=== PATIENT | male | born 1960 | race Two or more races ===

== ENCOUNTER 2018-09-08 15:52 | Inpatient (IN) | payer OTHER ==
[2018-09-08 20:55] VITALS: BMI 28.7
--- NOTE | 2018-09-08 21:30 | HP ---
CIWA Score Nausea/Vomitin Muscle Tremors: 2 Anxiety: 3 Agitation: 0-Normal Activity Paroxysmal Sweats: 2 Orientation: 0-Oriented Tacttile Disturbances: 2-Mild Itch/Numbness/Burn Auditory Disturbances: 0-None Visual Disturbances: 2-Mild Sensitivity Headache: 0-None Present CIWA-Ar Total Score: 14 - Admission Criteria OASAS Guidelines: Admission for Medically Managed Detox: Requires at least one of the followin. CIWA greater than 12 2. Seizures within the past 24 hours 3. Delirium tremens within the past 24 hours 4. Hallucinations within the past 24 hours 5. Acute intervention needed for co occurring medical disorder 6. Acute intervention needed for co occurring psychiatric disorder 7. Severe withdrawal that cannot be handled at a lower level of care (continued vomiting, continued diarrhea, abnormal vital signs) requiring intravenous medication and/or fluids 8. Patient presents the following: CIWA greater than 12 Admission Criteria Met: Admission criteria met Admission ROS S - HPI Chief Complaint: alcohol withdrawal symptoms Allergies/Adverse Reactions: Allergies Allergy/AdvReac Type Severity Reaction Status Date / Time No Known Allergies Allergy Verified 09/08/18 20:47 History of Present Illness: 57 yo male with hx of alcohol dependence is here seeking detox d/t withdrawal symptoms. PMHX: HTN, DM II (oral meds), [place] (R) Psych: schizophrenia on seroquel Reports hx of ETOH blackouts with last episode one week ago. Last detox 1.5 years ago at [facility]. Longest period of sobriety one year, reports relapse about five months ago. Exam Limitations: No Limitations - Ebola screening Have you traveled outside of the country in the last 21 days: No Have you had contact with anyone from an Ebola affected area: No - Review of Systems Constitutional: Chills, Loss of Appetite, Changes in sleep, Unintentional Wgt. Loss EENT: reports: Hearing Loss (Left) Respiratory: reports: No Symptoms reported Cardiac: reports: Palpitations GI: reports: Diarrhea, Nausea, Poor Appetite, Abdominal cramping : reports: Incontinence Musculoskeletal: reports: No Symptoms Reported Integumentary: reports: No Symptoms Reported Neuro: reports: Tingling (hands b/l), Tremors, Dizziness Endocrine: reports: Increased Thirst Hematology: reports: No Symptoms Reported Psychiatric: reports: Orientated x3, Anxious Other Systems: Reviewed and Negative Patient History - Patient Medical History Hx Anemia: No Hx Asthma: No Hx Chronic Obstructive Pulmonary Disease (COPD): No Hx Cancer: No Hx Cardiac Disorders: No Hx Congestive Heart Failure: No Hx Hypertension: Yes Hx Hypercholesterolemia: No Hx Pacemaker: No HX Cerebrovascular Accident: No Hx Seizures: No Hx Dementia: No Hx Diabetes: Yes (on metformin ) Hx Gastrointestinal Disorders: No Hx Liver Disease: No Hx Genitourinary Disorders: No Hx Sexually Transmitted Disorders: No Hx Renal Disease (ESRD): No Hx Thyroid Disease: No Hx Human Immunodeficiency Virus (HIV): No Hx Hepatitis C: No Hx Depression: No Hx Suicide Attempt: No Hx Bipolar Disorder: No Hx Schizophrenia: Yes (on seroquel ) - Patient Surgical History Past Surgical History: No - PPD History Previous Implant?: No Documented Results: Negative w/o proof PPD to be Administered?: Yes - Smoking Cessation Smoking history: Never smoked Have you smoked in the past 12 months: No Hx Chewing Tobacco Use: No Initiated information on smoking cessation: No - Substance & Tx. History Hx Alcohol Use: Yes Hx Substance Use: Yes Substance Use Type: Alcohol Hx Substance Use Treatment: Yes (Last detox 1.5 years ago at [facility].) - Substances abused Alcohol Substance route: Oral Frequency: Daily Amount used: 2 litter bacardi + 5 - 6 x 40 oz Age of first use: 17 Date of last use: 09/07/18 Family Disease History - Family Disease History Family Disease History: Heart Disease: Mother (), Sister () Admission Physical Exam BHS - Vital Signs Vital Signs: Vital Signs - 24 hr 09/08/18 20:46 Temperature 98.8 F Pulse Rate 99 H Respiratory 18 Rate Blood Pressure 148/90 - Physical General Appearance: Yes: Disheveled, Alcohol on Breath, Tremorous, Anxious HEENTM: Yes: EOMI, Normal ENT Inspection, Normocephalic, Normal Voice, LONA, Pharynx Normal, Tm's normal, Hearing Decreased (right) Respiratory: Yes: Chest Non-Tender, Lungs Clear, Normal Breath Sounds, No Respiratory Distress, No Accessory Muscle Use Neck: Yes: Within Normal Limits Breast: Yes: Breast Exam Deferred Cardiology: Yes: Regular Rhythm, Regular Rate Abdominal: Yes: Normal Bowel Sounds, Non Tender, Flat, Soft Genitourinary: Yes: Within Normal Limits Back: Yes: Normal Inspection Musculoskeletal: Yes: Within Normal Limits Extremities: Yes: Normal Capillary Refill, Normal Inspection, Normal Range of Motion, Non-Tender Neurological: Yes: prepress operator II-XII NML intact, Fully Oriented, Alert, Motor Strength 5/5, Depressed Affect Integumentary: Yes: Normal Color, Warm, Diaphoresis Lymphatic: Yes: Within Normal Limits - Diagnostic (1) Alcohol dependence with uncomplicated withdrawal Current Visit: Yes Status: Acute (2) Essential (primary) hypertension Current Visit: Yes Status: Chronic (3) Diabetes mellitus type 2, noninsulin dependent Current Visit: Yes Status: Chronic (4) Urinary incontinence Current Visit: Yes Status: Chronic Qualifiers: Urinary Incontinence type: unspecified incontinence Qualified Code(s): R32 - Unspecified urinary incontinence (5) [place] (hard of hearing) Current Visit: Yes Status: Chronic Qualifiers: Hearing loss type: unspecified Laterality: right Qualified Code(s): H91.91 - Unspecified hearing loss, right ear Cleared for Admission S - Detox or Rehab [facility] Level of Care: Medically Managed Detox Regimen/Protocol: Librium Breathalyzer - Breathalyzer Breathalyzer: 0 Urine Drug Screen - Test Device Lot number: [id number] Expiration date: 08/17/19 - Control Is test valid?: Yes - Results Drug screen NEGATIVE: Yes Inpatient Rehab Admission - Rehab Decision to Admit Inpatient rehab admission?: No
[2018-09-08] MEDS ORDERED: P-EPHED 60MG/TRIPROLIDI 2.5MG TABLET PO PRN (21:36)
[2018-09-08] MEDS ORDERED: chlordiazePOXIDE HCL 25 MG CAPSULE PO PRN (21:36)
[2018-09-08] MEDS ORDERED: ONDANSETRON *ODT* 4 MG TABLET SL PRN (21:36)
[2018-09-08] MEDS ORDERED: METHOCARBAMOL 500 MG TABLET PO PRN (21:36)
[2018-09-08] MEDS ORDERED: ACETAMINOPHEN 325 MG TABLET (FP) PO PRN ×2 (21:36)
[2018-09-08] MEDS ORDERED: IBUPROFEN 400 MG TABLET (FP) PO PRN (21:36)
[2018-09-08] MEDS ORDERED: MENTHOL/PHENOL 1 EACH UD MM PRN (21:36)
[2018-09-08] MEDS ORDERED: MELATONIN 5 MG TABLETS PO PRN (21:36)
[2018-09-08] MEDS ORDERED: hydrOXYzine PAMOATE 25 MG CAPSULE (FP) PO PRN (21:36)
[2018-09-08] MEDS ORDERED: MAGNESIUM CITRATE 300 ML BOTTLE PO PRN (21:36)
[2018-09-08] MEDS ORDERED: BISMUTH SUBSALICYLATE 524 MG/30 ML UD PO PRN (21:36)
[2018-09-08] MEDS ORDERED: MAGNESIUM HYDROX 2400MG/30ML ORAL SUSPENSION 30 ML CUP PO PRN (21:36)
[2018-09-08] MEDS ORDERED: MAG HYDROX/AL HYDROX/SIMETH 30 ML UNIT-DOSE CUP PO PRN (21:36)
[2018-09-08] MEDS: BACLOFEN 10 MG TABLET (FP) PO SCH (23:20)
[2018-09-08] MEDS: THIAMINE HCL 100 MG TABLET (FP) PO SCH (23:20)
[2018-09-08] MEDS: chlordiazePOXIDE HCL 25 MG CAPSULE PO SCH (23:21)
[2018-09-09] MEDS: BACLOFEN 10 MG TABLET (FP) PO SCH ×3 (06:26→22:19)
[2018-09-09] MEDS: chlordiazePOXIDE HCL 25 MG CAPSULE PO SCH ×4 (06:26→22:19)
[2018-09-09] MEDS: metFORMIN HCL 500 MG TABLET (FP) PO SCH ×2 (07:27→16:47)
--- NOTE | 2018-09-09 08:16 | CONSULT ---
[facility] Psychiatric Consult - Data Date of interview: 09/09/18 Admission source: Friend Identifying data: Mr Glover is a 57 years old [place]-born male, father of 2 children, unemployed receiving SSI, domiciled seeking detox treatment for alcohol Substance Abuse History: Reports history of alcohol use. Refer to addiction counselor's summary for further information Medical History: Significant for hypertension, type 2 diabetes mellitus and left hearing impairment. Psychiatric History: Patient reports that his first psychiatric contact was 6 years ago when he was amitted to [facility] for hearing voices. He was diagnosed with Schizophrenia and started on psychotropic medications. Reports 3 subsequent psychiatric hospitalizations to various facilities including [facility], [facility] and most recently in 2017 at [facility]. Reports receiving outpatient treatment at [facility] and he is currently precribed Seroquel 400 mg po HS, Haldol 1 mg po daily and Ambien 10 mg po HS. Seroquel and Ambien are confirmed via verification of external medication claims. In the past he has been tried on several medications including Trazadone, Risperdal, Zyprexa, Abilify etc. Denies previous suicidal attempt. At present, denies psychitic, depressive symptoms, S/ H ideations. However, reports sleeping poorly despite taking Melatonin last night Physical/Sexual Abuse/Trauma History: Denies history of emotional, physical or sexual abuse as well as DV relationship. Reports serving in the [employer] Additional Comment: Denies criminal history Mental Status Exam - Mental Status Exam Alert and Oriented to: Time, Place, Person Cognitive Function: Fair Patient Appearance: Well Groomed Mood: Hopeful, Euthymic Patient Behavior: Cooperative Speech Pattern: Clear Voice Loudness: Normal Thought Process: Intact, Goal Oriented Thought Disorder: Not Present Hallucinations: Denies Homicidal Ideation: Denies Insight/Judgement: Poor Sleep: Poorly Appetite: Fair Muscle strength/Tone: Normal Gait/Station: Normal Psychiatric Findings - Problem List ([place] 1, 2,3) (1) Schizophrenia Current Visit: Yes Status: Chronic (2) Alcohol-induced sleep disorder Current Visit: Yes Status: Acute (3) Alcohol dependence with uncomplicated withdrawal Current Visit: Yes Status: Acute (4) Diabetes mellitus type 2, noninsulin dependent Current Visit: Yes Status: Chronic (5) Essential (primary) hypertension Current Visit: Yes Status: Chronic (6) [place] (hard of hearing) Current Visit: Yes Status: Chronic Qualifiers: Hearing loss type: unspecified Laterality: right Qualified Code(s): H91.91 - Unspecified hearing loss, right ear - Initial Treatment Plan Initial Treatment Plan: 1) Continue Seroquel 400 mg po HS. 2) Start Belsomra 10 mg po HS prn for insomnia. 3) Continue inpatient detoxification
[2018-09-09 10:14] LABS: HEMATOCRIT 39.8 % (35.4-49); HEMOGLOBIN 13.4 GM/dL (11.7-16.9); MCH 28.8 pg (25.7-33.7); MCHC 33.5 g/dl (32.0-35.9); MEAN PLT VOLUME 10.1 fl (7.5-11.1); PLATELET COUNT 281 K/MM3 (134-434); RBC 4.63 M/mm3 (4.00-5.60); RDW 13.7 % (11.9-15.9); WHITE BLOOD COUNT 6.9 K/mm3 (4.0-10.0)
[2018-09-09 10:23] LABS: ALBUMIN 3.5 g/dl (3.4-5.0); ALK PHOS 137 U/L (45-117); ANION GAP 8 MMOL/L (8-16); BILIRUBIN,TOTAL 0.3 mg/dL (0.2-1); BLOOD UREA NITROGEN 14 mg/dL (7-18); CALCIUM 9.6 mg/dL (8.5-10.1); CHLORIDE 103 mmol/L (98-107); CO2 29 mmol/L (21-32); CREATININE 1.1 mg/dL (0.55-1.3); GLUCOSE,RANDOM 280 mg/dL (74-106); POTASSIUM 3.8 mmol/L (3.5-5.1); SGOT/AST 15 U/L (15-37); SGPT/ALT 17 U/L (13-61); SODIUM 139 mmol/L (136-145); TOT PROT 7.1 g/dl (6.4-8.2)
[2018-09-09] MEDS: NIFEdipine E.R. 90 MG TABLET (FP) PO SCH (10:23)
[2018-09-09] MEDS: PRENATAL VITAMINS W/ FOLIC ACID TABLET (FP) PO SCH (10:23)
[2018-09-09] MEDS: LABETALOL HCL 100 MG TABLET (FP) PO SCH (10:23)
[2018-09-09] MEDS: ASPIRIN 81 MG CHEWABLE TABLETS PO SCH (10:23)
--- NOTE | 2018-09-09 12:39 | EKG ---
Test Reason : Blood Pressure : / mmHG Vent. Rate : 093 BPM Atrial Rate : 093 BPM P-R Int : 148 ms QRS Dur : 088 ms QT Int : 368 ms P-R-T Axes : 073 -11 090 degrees QTc Int : 457 ms SINUS RHYTHM WITH OCCASIONAL PREMATURE VENTRICULAR COMPLEXES MINIMAL VOLTAGE CRITERIA FOR LVH, MAY BE NORMAL VARIANT NONSPECIFIC ST AND T WAVE ABNORMALITY ABNORMAL ECG Confirmed by MD COSME, OSMANI ([id number]) on 09/09/2018 12:39:12 PM Referred By: Confirmed By:OSMANI AGUIAR MD
--- NOTE | 2018-09-09 13:11 | PN ---
S CIWA - CIWA Score Nausea/Vomitin-No Nausea/No Vomiting Muscle Tremors: 3 Anxiety: 3 Agitation: 4-Moderately Restless Paroxysmal Sweats: 3 Orientation: 0-Oriented Tacttile Disturbances: 0-None Auditory Disturbances: 0-None Visual Disturbances: 0-None Headache: 0-None Present CIWA-Ar Total Score: 13 BHS Progress Note (SOAP) Subjective: sweats shakes interrupted sleep body aches irritable Objective: 09/09/18 13:10 Vital Signs Temperature 98.1 F 09/09/18 10:55 Pulse Rate 105 H 09/09/18 10:55 Respiratory Rate 18 09/09/18 10:55 Blood Pressure 159/102 H 09/09/18 10:55 O2 Sat by Pulse Oximetry (%) Laboratory Tests 09/09/18 09/09/18 09/09/18 07:00 07:00 07:00 WBC 6.9 RBC 4.63 Hgb 13.4 Hct 39.8 MCV 86.0 MCH 28.8 MCHC 33.5 RDW 13.7 Plt Count 281 MPV 10.1 Sodium 139 Potassium 3.8 Chloride 103 Carbon Dioxide 29 Anion Gap 8 BUN 14 Creatinine 1.1 Creat Clearance w eGFR 69.50 POC Glucometer Random Glucose 280 H Calcium 9.6 Total Bilirubin 0.3 AST 15 ALT 17 Alkaline Phosphatase 137 H Total Protein 7.1 Albumin 3.5 RPR Titer Nonreactive HIV 1&2 Antibody Screen HIV P24 Antigen 09/09/18 09/09/18 07:00 07:23 WBC RBC Hgb Hct MCV MCH MCHC RDW Plt Count MPV Sodium Potassium Chloride Carbon Dioxide Anion Gap BUN Creatinine Creat Clearance w eGFR POC Glucometer 259 Random Glucose Calcium Total Bilirubin AST ALT Alkaline Phosphatase Total Protein Albumin RPR Titer HIV 1&2 Antibody Screen Negative HIV P24 Antigen Negative aaox3 ambulating labs noted BP elevated will repeat after pt has taken his BP medications no acute distress Assessment: 09/09/18 13:10 withdrawals sx Plan: continue detox increase fluids continue to monitor BP
[2018-09-09] MEDS ORDERED: INSULIN (NOVOLOG) ASPART 100 UNITS/ML 10ML VIAL SQ ONE (17:45)
[2018-09-09] MEDS ORDERED: INSULIN SLIDING SCALE (NOVOLOG) 1 VIAL SQ ONE (17:59)
[2018-09-09] MEDS ORDERED: SUVOREXANT 10 MG TABLET PO PRN (22:00)
[2018-09-09] MEDS ORDERED: QUEtiapine FUMARATE 400 MG TABLET PO SCH (22:00)
[2018-09-09] MEDS: QUEtiapine FUMARATE 200 MG TABLET PO SCH (22:19)
[2018-09-09] MEDS: THIAMINE HCL 100 MG TABLET (FP) PO SCH (22:19)
[2018-09-10] MEDS: metFORMIN HCL 500 MG TABLET (FP) PO SCH ×2 (06:30→17:30)
[2018-09-10] MEDS: BACLOFEN 10 MG TABLET (FP) PO SCH ×3 (06:30→22:10)
[2018-09-10] MEDS: chlordiazePOXIDE HCL 25 MG CAPSULE PO SCH ×3 (06:30→18:20)
[2018-09-10] MEDS: TRIAMCINOLONE ACET 0.025% CREAM 15 GM TUBE TP SCH ×2 (11:03→22:10)
[2018-09-10] MEDS: PRENATAL VITAMINS W/ FOLIC ACID TABLET (FP) PO SCH (11:03)
[2018-09-10] MEDS: ASPIRIN 81 MG CHEWABLE TABLETS PO SCH (11:03)
[2018-09-10] MEDS: guaiFENesin 200 MG/10 ML 10 ML UNIT-DOSE CUPS PO PRN (11:06)
[2018-09-10] MEDS: NIFEdipine E.R. 90 MG TABLET (FP) PO SCH (11:52)
[2018-09-10] MEDS: LABETALOL HCL 100 MG TABLET (FP) PO SCH (11:52)
--- NOTE | 2018-09-10 12:06 | PN ---
S CIWA - CIWA Score Nausea/Vomitin-Mild Nausea/No Vomiting Muscle Tremors: 1-None Visible, but [place] Anxiety: 1-Mildly Anxious Agitation: 1-Slight > Activity Paroxysmal Sweats: No Perspiration Orientation: 0-Oriented Tacttile Disturbances: 0-None Auditory Disturbances: 0-None Visual Disturbances: 0-None Headache: 0-None Present CIWA-Ar Total Score: 4 BHS Progress Note (SOAP) Subjective: pt states he is "OK" O: Vital Signs - 24 hr 09/09/18 09/09/18 09/09/18 13:11 17:11 21:48 Temperature 98.6 F 97.7 F 97.9 F Pulse Rate 100 H 113 H 87 Respiratory 18 18 18 Rate Blood Pressure 134/88 147/94 153/104 H 09/10/18 09/10/18 09/10/18 00:30 03:00 03:30 Temperature 98.2 F Pulse Rate 101 H Respiratory 20 20 18 Rate Blood Pressure 152/111 H 09/10/18 10:26 Temperature 97.8 F Pulse Rate 111 H Respiratory 18 Rate Blood Pressure 164/97 increased MD and BP Laboratory Tests 09/09/18 09/09/18 09/09/18 07:00 07:00 07:00 WBC 6.9 RBC 4.63 Hgb 13.4 Hct 39.8 MCV 86.0 MCH 28.8 MCHC 33.5 RDW 13.7 Plt Count 281 MPV 10.1 Sodium 139 Potassium 3.8 Chloride 103 Carbon Dioxide 29 Anion Gap 8 BUN 14 Creatinine 1.1 Creat Clearance w eGFR 69.50 POC Glucometer Random Glucose 280 H Calcium 9.6 Total Bilirubin 0.3 AST 15 ALT 17 Alkaline Phosphatase 137 H Total Protein 7.1 Albumin 3.5 RPR Titer Nonreactive HIV 1&2 Antibody Screen HIV P24 Antigen 09/09/18 09/09/18 09/09/18 07:00 07:23 16:42 WBC RBC Hgb Hct MCV MCH MCHC RDW Plt Count MPV Sodium Potassium Chloride Carbon Dioxide Anion Gap BUN Creatinine Creat Clearance w eGFR POC Glucometer 259 324 Random Glucose Calcium Total Bilirubin AST ALT Alkaline Phosphatase Total Protein Albumin RPR Titer HIV 1&2 Antibody Screen Negative HIV P24 Antigen Negative 09/10/18 06:49 WBC RBC Hgb Hct MCV MCH MCHC RDW Plt Count MPV Sodium Potassium Chloride Carbon Dioxide Anion Gap BUN Creatinine Creat Clearance w eGFR POC Glucometer 288 Random Glucose Calcium Total Bilirubin AST ALT Alkaline Phosphatase Total Protein Albumin RPR Titer HIV 1&2 Antibody Screen HIV P24 Antigen increased blood sugar a/p: continue alcohol detox protocol- pt states doing well without withdrawal Sx - monitor VS, prn meds for Sxic treatment
[2018-09-10] MEDS ORDERED: cloNIDine HCL 0.1 MG TABLET PO PRN (12:07)
[2018-09-10] MEDS ORDERED: hydrOXYzine PAMOATE 25 MG CAPSULE (FP) PO PRN (12:07)
[2018-09-10] MEDS ORDERED: LISINOPRIL 20 MG TABLET (FP) PO ONE (14:56)
[2018-09-10] MEDS: THIAMINE HCL 100 MG TABLET (FP) PO SCH (22:09)
[2018-09-10] MEDS: QUEtiapine FUMARATE 200 MG TABLET PO SCH (22:10)
[2018-09-10] MEDS: chlordiazePOXIDE HCL 10 MG CAPSULE PO SCH (22:10)
[2018-09-10] MEDS ORDERED: chlordiazePOXIDE HCL 10 MG CAPSULE PO PRN (23:00)
[2018-09-10] MEDS ORDERED: cloNIDine HCL 0.1 MG TABLET PO ONE (23:19)
--- NOTE | 2018-09-10 23:24 | PN ---
[facility] Progress Note Note: Patient's blood pressure is B/P 150/102 Vital Signs Temperature 97.7 F 09/10/18 21:48 Pulse Rate 100 H 09/10/18 21:48 Respiratory Rate 18 09/10/18 21:48 Blood Pressure 150/102 H 09/10/18 21:48 O2 Sat by Pulse Oximetry (%) Action: Clonidine 0.1mg tablet oral ordered
[2018-09-11] MEDS: chlordiazePOXIDE HCL 10 MG CAPSULE PO SCH ×4 (06:01→22:17)
[2018-09-11] MEDS ORDERED: cloNIDine HCL 0.1 MG TABLET PO ONE (06:10)
--- NOTE | 2018-09-11 06:14 | PN ---
BHS Progress Note Note: Patient's blood pressure this morning is B/P 152/111. patient is asymptomatic Vital Signs Temperature 97.9 F 09/11/18 06:12 Pulse Rate 92 H 09/11/18 06:12 Respiratory Rate 18 09/11/18 06:12 Blood Pressure 152/111 H 09/11/18 06:12 O2 Sat by Pulse Oximetry (%) Action: Clonidine 0.1mg tablet oral ordered
[2018-09-11] MEDS: metFORMIN HCL 500 MG TABLET (FP) PO SCH ×2 (07:01→17:27)
[2018-09-11] MEDS: BACLOFEN 10 MG TABLET (FP) PO SCH ×2 (07:01→15:13)
[2018-09-11] MEDS ORDERED: INSULIN (NOVOLOG) ASPART 100 UNITS/ML 10ML VIAL SQ ONE (07:26)
--- NOTE | 2018-09-11 07:32 | PN ---
BHS Progress Note Note: Patient's blood sugar was 406mg/dl. Patient is asymptomatic Action: Insulin Novolog 8 units ordered
[2018-09-11] MEDS ORDERED: INSULIN SLIDING SCALE (NOVOLOG) 1 VIAL SQ ONE ×2 (07:50→17:57)
[2018-09-11] MEDS: diphenhydrAMINE HCL 25 MG CAPSULE (FP) PO SCH ×2 (08:45→13:44)
[2018-09-11] MEDS: LABETALOL HCL 100 MG TABLET (FP) PO SCH (10:18)
[2018-09-11] MEDS: LISINOPRIL 20 MG TABLET (FP) PO SCH (10:18)
[2018-09-11] MEDS: PRENATAL VITAMINS W/ FOLIC ACID TABLET (FP) PO SCH (10:18)
[2018-09-11] MEDS: ASPIRIN 81 MG CHEWABLE TABLETS PO SCH (10:18)
[2018-09-11] MEDS: NIFEdipine E.R. 90 MG TABLET (FP) PO SCH (10:18)
[2018-09-11] MEDS: TRIAMCINOLONE ACET 0.025% CREAM 15 GM TUBE TP SCH ×2 (10:18→22:17)
--- NOTE | 2018-09-11 12:10 | EKG ---
Test Reason : Blood Pressure : / mmHG Vent. Rate : 092 BPM Atrial Rate : 092 BPM P-R Int : 138 ms QRS Dur : 086 ms QT Int : 386 ms P-R-T Axes : 056 -26 -53 degrees QTc Int : 477 ms SINUS RHYTHM WITH OCCASIONAL PREMATURE VENTRICULAR COMPLEXES MINIMAL VOLTAGE CRITERIA FOR LVH, MAY BE NORMAL VARIANT NONSPECIFIC T WAVE ABNORMALITY PROLONGED QT ABNORMAL ECG WHEN COMPARED WITH ECG OF 08-SEP-2018 21:55, NONSPECIFIC T WAVE ABNORMALITY NOW EVIDENT IN INFERIOR LEADS Confirmed by HARSHAL ALVA MD ([id number]) on 09/11/2018 12:10:21 PM Referred By: MARIA EUGENIA OLIVIA Confirmed By:HARSHAL ALVA MD
--- NOTE | 2018-09-11 13:36 | PN ---
S Progress Note Note: this am pt states he woke up to his upper lip very swollen pt was assessed and has his upper lip very swollen. pt denies any difficulty swallowing no SOB. pt will be ordered Benadryl 25mg q6hr until swelling has diminished. pt in agreement.
--- NOTE | 2018-09-11 13:37 | PN ---
[facility] CIWA - CIWA Score Nausea/Vomitin-No Nausea/No Vomiting Muscle Tremors: 3 Anxiety: 3 Agitation: 3 Paroxysmal Sweats: 2 Orientation: 0-Oriented Tacttile Disturbances: 0-None Auditory Disturbances: 0-None Visual Disturbances: 0-None Headache: 0-None Present CIWA-Ar Total Score: 11 [facility] Progress Note (SOAP) Subjective: sweats agitation swelling of lip Objective: 09/11/18 13:40 Vital Signs Temperature 97.9 F 09/11/18 09:08 Pulse Rate 94 H 09/11/18 09:08 Respiratory Rate 18 09/11/18 09:08 Blood Pressure 124/78 09/11/18 09:08 O2 Sat by Pulse Oximetry (%) Laboratory Tests 09/09/18 09/09/18 09/09/18 07:00 07:00 07:00 WBC 6.9 RBC 4.63 Hgb 13.4 Hct 39.8 MCV 86.0 MCH 28.8 MCHC 33.5 RDW 13.7 Plt Count 281 MPV 10.1 Sodium 139 Potassium 3.8 Chloride 103 Carbon Dioxide 29 Anion Gap 8 BUN 14 Creatinine 1.1 Creat Clearance w eGFR 69.50 POC Glucometer Random Glucose 280 H Calcium 9.6 Total Bilirubin 0.3 AST 15 ALT 17 Alkaline Phosphatase 137 H Total Protein 7.1 Albumin 3.5 RPR Titer Nonreactive HIV 1&2 Antibody Screen HIV P24 Antigen 09/09/18 09/09/18 09/09/18 07:00 07:23 16:42 WBC RBC Hgb Hct MCV MCH MCHC RDW Plt Count MPV Sodium Potassium Chloride Carbon Dioxide Anion Gap BUN Creatinine Creat Clearance w eGFR POC Glucometer 259 324 Random Glucose Calcium Total Bilirubin AST ALT Alkaline Phosphatase Total Protein Albumin RPR Titer HIV 1&2 Antibody Screen Negative HIV P24 Antigen Negative 09/10/18 09/10/18 09/11/18 06:49 17:02 06:58 WBC RBC Hgb Hct MCV MCH MCHC RDW Plt Count MPV Sodium Potassium Chloride Carbon Dioxide Anion Gap BUN Creatinine Creat Clearance w eGFR POC Glucometer 288 360 406 Random Glucose Calcium Total Bilirubin AST ALT Alkaline Phosphatase Total Protein Albumin RPR Titer HIV 1&2 Antibody Screen HIV P24 Antigen aaox3 ambulating no acute distress Assessment: 09/11/18 13:41 withdrawal sx swelling of upper lip noted Plan: continue detox increase fluids Benadryl 25mg q6hrs reassess lip swelling
--- NOTE | 2018-09-11 14:59 | PN ---
S Progress Note Note: swelling of upper and now lower lip noted pt denies of any difficulty of swallowing and breathing will continue with higher dose of benadryl 50mg first dose now. will reasses
[2018-09-11] MEDS ORDERED: predniSONE 20 MG TABLET (UD) PO ONE ×2 (17:17→18:02)
--- NOTE | 2018-09-11 17:17 | PN ---
[facility] Progress Note Note: Vital Signs Temperature 99.0 F 09/11/18 17:06 Pulse Rate 89 09/11/18 17:06 Respiratory Rate 20 09/11/18 17:06 Blood Pressure 137/88 09/11/18 17:06 O2 Sat by Pulse Oximetry (%) Laboratory Last Values WBC 6.9 K/mm3 (4.0-10.0) 09/09/18 07:00 RBC 4.63 M/mm3 (4.00-5.60) 09/09/18 07:00 Hgb 13.4 GM/dL (11.7-16.9) 09/09/18 07:00 Hct 39.8 % (35.4-49) 09/09/18 07:00 MCV 86.0 fl (80-96) 09/09/18 07:00 MCH 28.8 pg (25.7-33.7) 09/09/18 07:00 MCHC 33.5 g/dl (32.0-35.9) 09/09/18 07:00 RDW 13.7 % (11.9-15.9) 09/09/18 07:00 Plt Count 281 K/MM3 (134-434) 09/09/18 07:00 MPV 10.1 fl (7.5-11.1) 09/09/18 07:00 Sodium 139 mmol/L (136-145) 09/09/18 07:00 Potassium 3.8 mmol/L (3.5-5.1) 09/09/18 07:00 Chloride 103 mmol/L (98-107) 09/09/18 07:00 Carbon Dioxide 29 mmol/L (21-32) 09/09/18 07:00 Anion Gap 8 MMOL/L (8-16) 09/09/18 07:00 BUN 14 mg/dL (7-18) 09/09/18 07:00 Creatinine 1.1 mg/dL (0.55-1.3) 09/09/18 07:00 Creat Clearance w eGFR 69.50 (>60) 09/09/18 07:00 POC Glucometer 362 UNITS (80-120) 09/11/18 16:30 Random Glucose 280 mg/dL (74-106) H 09/09/18 07:00 Calcium 9.6 mg/dL (8.5-10.1) 09/09/18 07:00 Total Bilirubin 0.3 mg/dL (0.2-1) 09/09/18 07:00 AST 15 U/L (15-37) 09/09/18 07:00 ALT 17 U/L (13-61) 09/09/18 07:00 Alkaline Phosphatase 137 U/L (45-117) H 09/09/18 07:00 Total Protein 7.1 g/dl (6.4-8.2) 09/09/18 07:00 Albumin 3.5 g/dl (3.4-5.0) 09/09/18 07:00 RPR Titer Nonreactive (NONREACTIVE) 09/09/18 07:00 HIV 1&2 Antibody Screen Negative 09/09/18 07:00 HIV P24 Antigen Negative 09/09/18 07:00 Patient evaluated for elevated BGM and lip bilateral lip swelling denies SOB, difficulty breathing, air way constriction, paresthesia, BHAGAT, vertigo Patient Aox3, no acute distress + upper and lower lip swelling skin intact no adventitious breath sounds full ROM, no gait disturbance - hyperglycemia - allergic reaction Plan: increase po fluids insulin sliding scale BGM ACHS prednisone: 09/11/18 = 40 mg; 09/12/18 = 30 mg; 09/13/18 = 20 mg; 09/14/18 = 10 mg bendryl 50 mg q6h prn continue to monitor
[2018-09-11] MEDS: INSULIN (NOVOLOG) ASPART 100 UNITS/ML 10ML VIAL SQ SCH (17:55)
[2018-09-11] MEDS: diphenhydrAMINE HCL 50 MG CAPSULE PO SCH ×2 (18:23→23:50)
[2018-09-11] MEDS: THIAMINE HCL 100 MG TABLET (FP) PO SCH (22:17)
[2018-09-11] MEDS: QUEtiapine FUMARATE 200 MG TABLET PO SCH (22:17)
[2018-09-11] MEDS: guaiFENesin 200 MG/10 ML 10 ML UNIT-DOSE CUPS PO PRN (22:19)
[2018-09-12] MEDS ORDERED: diphenhydrAMINE HCL 25 MG CAPSULE (FP) PO ONE (04:15)
[2018-09-12] MEDS: diphenhydrAMINE HCL 50 MG CAPSULE PO SCH (06:11)
[2018-09-12] MEDS ORDERED: cloNIDine HCL 0.1 MG TABLET PO ONE (06:19)
--- NOTE | 2018-09-12 06:22 | PN ---
B[facility] Progress Note Note: Patient s blood pressure is B/P 170/109. Patient is asymptomatic Vital Signs Temperature 98.1 F 09/12/18 06:00 Pulse Rate 102 H 09/12/18 06:05 Respiratory Rate 18 09/12/18 06:05 Blood Pressure 170/109 H 09/12/18 06:05 O2 Sat by Pulse Oximetry (%) Action: Clonidine 0.1mg table oral ordered
[2018-09-12] MEDS ORDERED: INSULIN SLIDING SCALE (NOVOLOG) 1 VIAL SQ ONE ×2 (06:29→12:10)
[2018-09-12] MEDS: INSULIN (NOVOLOG) ASPART 100 UNITS/ML 10ML VIAL SQ SCH ×3 (06:32→17:22)
[2018-09-12] MEDS: metFORMIN HCL 500 MG TABLET (FP) PO SCH ×2 (06:33→17:22)
[2018-09-12] MEDS ORDERED: predniSONE 10 MG TABLET (UD) PO ONE (10:00)
--- NOTE | 2018-09-12 10:31 | PN ---
S CIWA - CIWA Score Nausea/Vomitin-No Nausea/No Vomiting Muscle Tremors: 3 Anxiety: 2 Agitation: 2 Paroxysmal Sweats: 2 Orientation: 0-Oriented Tacttile Disturbances: 0-None Auditory Disturbances: 0-None Visual Disturbances: 0-None Headache: 0-None Present CIWA-Ar Total Score: 9 BHS Progress Note (SOAP) Subjective: lip swelling has decreased feeling much better little anxiety Objective: 09/12/18 10:29 Vital Signs Temperature 98.1 F 09/12/18 09:18 Pulse Rate 92 H 09/12/18 09:18 Respiratory Rate 18 09/12/18 09:18 Blood Pressure 159/90 09/12/18 09:18 O2 Sat by Pulse Oximetry (%) aaox3 ambulating no acute distress Assessment: 09/12/18 10:29 mild withdrawal sx lip swelling has decreased significantly; lips appear normal Plan: continue detox increase fluids benadryl d/c d/c in am
[2018-09-12] MEDS: PRENATAL VITAMINS W/ FOLIC ACID TABLET (FP) PO SCH (11:52)
[2018-09-12] MEDS: LABETALOL HCL 100 MG TABLET (FP) PO SCH (11:52)
[2018-09-12] MEDS: ASPIRIN 81 MG CHEWABLE TABLETS PO SCH (11:53)
[2018-09-12] MEDS: chlordiazePOXIDE HCL 10 MG CAPSULE PO SCH (11:53)
[2018-09-12] MEDS: LISINOPRIL 20 MG TABLET (FP) PO SCH (11:53)
[2018-09-12] MEDS: TRIAMCINOLONE ACET 0.025% CREAM 15 GM TUBE TP SCH (11:53)
[2018-09-12 17:23] VITALS: BP 119/74; PULSE 91; TEMP 98.4
--- NOTE | 2018-09-12 20:08 | DS ---
[facility] Detox Discharge Summary Admission Date: 09/08/18 Discharge Date: 09/12/18 - History Present History: Alcohol Dependence Additional Comments: Admitted with alcohol withdrawal. PMHX: HTN, DM II. MHHx: Schizophrenia - Physical Exam Results Vital Signs: Vital Signs Temperature 98.4 F 09/12/18 17:23 Pulse Rate 91 H 09/12/18 17:23 Respiratory Rate 18 09/12/18 17:23 Blood Pressure 119/74 09/12/18 17:23 O2 Sat by Pulse Oximetry (%) Pertinent Admission Physical Exam Findings: Admitted to detox with alcohol withdrawal symptoms. Laboratory Last Values WBC 6.9 K/mm3 (4.0-10.0) 09/09/18 07:00 RBC 4.63 M/mm3 (4.00-5.60) 09/09/18 07:00 Hgb 13.4 GM/dL (11.7-16.9) 09/09/18 07:00 Hct 39.8 % (35.4-49) 09/09/18 07:00 MCV 86.0 fl (80-96) 09/09/18 07:00 MCH 28.8 pg (25.7-33.7) 09/09/18 07:00 MCHC 33.5 g/dl (32.0-35.9) 09/09/18 07:00 RDW 13.7 % (11.9-15.9) 09/09/18 07:00 Plt Count 281 K/MM3 (134-434) 09/09/18 07:00 MPV 10.1 fl (7.5-11.1) 09/09/18 07:00 Sodium 139 mmol/L (136-145) 09/09/18 07:00 Potassium 3.8 mmol/L (3.5-5.1) 09/09/18 07:00 Chloride 103 mmol/L (98-107) 09/09/18 07:00 Carbon Dioxide 29 mmol/L (21-32) 09/09/18 07:00 Anion Gap 8 MMOL/L (8-16) 09/09/18 07:00 BUN 14 mg/dL (7-18) 09/09/18 07:00 Creatinine 1.1 mg/dL (0.55-1.3) 09/09/18 07:00 Creat Clearance w eGFR 69.50 (>60) 09/09/18 07:00 POC Glucometer 408 UNITS (80-120) 09/12/18 16:38 Random Glucose 280 mg/dL (74-106) H 09/09/18 07:00 Calcium 9.6 mg/dL (8.5-10.1) 09/09/18 07:00 Total Bilirubin 0.3 mg/dL (0.2-1) 09/09/18 07:00 AST 15 U/L (15-37) 09/09/18 07:00 ALT 17 U/L (13-61) 09/09/18 07:00 Alkaline Phosphatase 137 U/L (45-117) H 09/09/18 07:00 Total Protein 7.1 g/dl (6.4-8.2) 09/09/18 07:00 Albumin 3.5 g/dl (3.4-5.0) 09/09/18 07:00 RPR Titer Nonreactive (NONREACTIVE) 09/09/18 07:00 HIV 1&2 Antibody Screen Negative 09/09/18 07:00 HIV P24 Antigen Negative 09/09/18 07:00 Labs reviewed. - Treatment Hospital Course: Detox Protocol Followed, Rehab Referral Accepted - Medication Discharge Medications: Ambulatory Orders Aspirin 81 mg PO DAILY 09/08/18 Labetalol HCl 100 mg PO DAILY 09/08/18 Metformin HCl [Glucophage] 500 mg PO BID 09/08/18 Nifedipine [Procardia Xl] 90 mg PO DAILY 09/08/18 Quetiapine Fumarate [Seroquel -] 400 mg PO HS 09/08/18 - Diagnosis (1) Alcohol dependence with uncomplicated withdrawal Status: Acute (2) Diabetes mellitus type 2, noninsulin dependent Status: Chronic (3) Essential (primary) hypertension Status: Chronic (4) [place] (hard of hearing) Status: Chronic Qualifiers: Hearing loss type: unspecified Laterality: right Qualified Code(s): H91.91 - Unspecified hearing loss, right ear (5) Schizophrenia Status: Chronic Qualifiers: Schizophrenia type: unspecified Qualified Code(s): F20.9 - Schizophrenia, unspecified (6) Urinary incontinence Status: Chronic Qualifiers: Urinary Incontinence type: unspecified incontinence Qualified Code(s): R32 - Unspecified urinary incontinence - AMA Did Patient Leave Against Medical Advice: No
[2018-09-13] MEDS ORDERED: predniSONE 20 MG TABLET (UD) PO ONE (10:00)
== END 2018-09-12 19:30 | disposition other institution (70) | DRG 775 ==
LOC: YASAS 15:52 → Y6N 21:42
PROVIDERS: ADMIT Surgery; ATTEND Surgery
PROC: HZ2ZZZZ Detoxification Services for Substance Abuse Treatment (ICD-10-PCS; principal; 2018-09-08)
DX: F10.230 Alcohol dependence with withdrawal, uncomplicated (principal); F10.282 Alcohol dependence with alcohol-induced sleep disorder; F20.9 Schizophrenia, unspecified; I10 Essential (primary) hypertension; E11.65 Type 2 diabetes mellitus with hyperglycemia; Z79.4 Long term (current) use of insulin; H91.91 Unspecified hearing loss, right ear; T78.40XA Allergy, unspecified, initial encounter; R22.0 Localized swelling, mass and lump, head; R32 Unspecified urinary incontinence
CPT/HCPCS: 36415; 80053; 82962; 85027; 86593; 87389; 93005; 93010; J0475; J0735

== ENCOUNTER 2018-09-12 19:55 | Inpatient (IN) | payer OTHER ==
--- NOTE | 2018-09-12 19:45 | HP ---
[facility] Rehab Assess/Revision - Admission History Admitted to Rehab from: [facility] Date of Admission to Rehab: 09/12/2018 - Findings Detox History & Physical reviewed: Yes Concur with findings: Yes Comments/Additional Findings: Early alcohol remission post detox. PMHX: HTN, DM II. Psych: Schizophrenia on seroquel Inpatient Rehab Admission - Rehab Decision to Admit Inpatient rehab admission?: Yes - Initial Determination Are CD services needed?: Yes Free of communicable disease: Yes Not in need of hospitalization: Yes - Rehab Admission Criteria Previous failed treatment: Yes Poor recovery environment: Yes Comorbidities: Yes Lacks judgement: No Patient is meeting Inpatient Rehab admission criteria:: Yes
[2018-09-12] MEDS ORDERED: guaiFENesin 200 MG/10 ML 10 ML UNIT-DOSE CUPS PO PRN (22:12)
[2018-09-12] MEDS ORDERED: IBUPROFEN 400 MG TABLET (FP) PO PRN (22:12)
[2018-09-12] MEDS ORDERED: MENTHOL/PHENOL 1 EACH UD MM PRN (22:12)
[2018-09-12] MEDS ORDERED: MAGNESIUM HYDROX 2400MG/30ML ORAL SUSPENSION 30 ML CUP PO PRN (22:12)
[2018-09-12] MEDS ORDERED: P-EPHED 60MG/TRIPROLIDI 2.5MG TABLET PO PRN (22:12)
[2018-09-12] MEDS ORDERED: MAG HYDROX/AL HYDROX/SIMETH 30 ML UNIT-DOSE CUP PO PRN (22:12)
[2018-09-12] MEDS ORDERED: MAGNESIUM CITRATE 300 ML BOTTLE PO PRN (22:12)
[2018-09-12] MEDS ORDERED: LOPERAMIDE HCL 2 MG CAPSULE PO PRN (22:12)
[2018-09-12] MEDS ORDERED: ACETAMINOPHEN 325 MG TABLET (FP) PO PRN (22:12)
[2018-09-12] MEDS ORDERED: SUVOREXANT 10 MG TABLET PO PRN (22:15)
[2018-09-12] MEDS ORDERED: QUEtiapine FUMARATE 200 MG TABLET PO SCH (22:17)
[2018-09-13] MEDS ORDERED: cloNIDine HCL 0.1 MG TABLET PO ONE (06:56)
--- NOTE | 2018-09-13 06:59 | PN ---
[facility] Progress Note Note: Patient's blood pressure this morning was B/P 153/110. Patient is asymptomatic Vital Signs Temperature 98.8 F 09/12/18 20:55 Pulse Rate 100 H 09/12/18 20:55 Respiratory Rate 20 09/13/18 03:30 Blood Pressure 153/110 H 09/13/18 06:32 O2 Sat by Pulse Oximetry (%) Action: Clonidine 0.1mg tablet oral ordered
[2018-09-13] MEDS: INSULIN SLIDING SCALE (NOVOLOG) 1 VIAL SQ SCH ×3 (07:03→16:55)
[2018-09-13] MEDS: metFORMIN HCL 500 MG TABLET (FP) PO SCH ×2 (07:03→16:54)
[2018-09-13] MEDS ORDERED: INSULIN (NOVOLOG) ASPART 100 UNITS/ML 10ML VIAL ONE ×3 (07:08→16:54)
[2018-09-13] MEDS ORDERED: PT OWN MED DRAWER 7, Y5N ONE (09:08)
[2018-09-13] MEDS: LISINOPRIL 20 MG TABLET (FP) PO SCH (10:41)
[2018-09-13] MEDS: LABETALOL HCL 100 MG TABLET (FP) PO SCH (10:41)
[2018-09-13] MEDS: ASPIRIN 81 MG CHEWABLE TABLETS PO SCH (10:41)
[2018-09-13] MEDS: PRENATAL VITAMINS W/ FOLIC ACID TABLET (FP) PO SCH (10:41)
[2018-09-13] MEDS: predniSONE 20 MG TABLET (UD) PO SCH (10:41)
[2018-09-13] MEDS: NIFEdipine E.R. 90 MG TABLET (FP) PO SCH (10:41)
[2018-09-13] MEDS: TRIAMCINOLONE ACET 0.025% CREAM 15 GM TUBE TP SCH ×2 (13:20→22:24)
--- NOTE | 2018-09-13 17:02 | CONSULT ---
[facility] Psychiatric Consult - Data Date of interview: 09/13/18 Admission source: Transfer from [address] [place] [address]. Identifying data: Case of a 57 y/o [place]-born male, sent to [address] for rehabilitative care after completion of detoxification treatment on [address] [place] [address]. Patient is addressing issues of alcohohol use disorder co-morbid with schizophrenia. Mr Nieves is currently (divorce pending), a father of two, uncertain about housing status, unemployed and supported on SSI benefits. Substance Abuse History: Discussed in this session. Patient admits to an extensive history of ETOH abuse. Details in current [facility] report as follows : Smoking history: Never smoked. Have you smoked in the past 12 months: No. Hx Chewing Tobacco Use: No. Initiated information on smoking cessation: No. - Substance & Tx. History. Hx Alcohol Use: Yes. Hx Substance Use: Yes. Substance Use Type: Alcohol. Hx Substance Use Treatment: Yes (Last detox 1.5 years ago at [facility].). - Substances abused. Alcohol. Substance route: Oral. Frequency: Daily. Amount used: 2 litter bacardi + 5 - 6 x 40 oz. Age of first use: 17. Date of last use: 09/07/18 Medical History: Medical co-morbidities : hypertension, non-insulin dependent diabetes mellitus and hearing impediment (left ear). Psychiatric History: Described, in detail, in Dr Morel's consult note of . Mr Hahn is at his first admission to [facility]. Diagnosed with schizophrenia. Early onset of mental illness (age [age]). History of multiple hospitalizations ([facility], [facility], [facility], [facility], [facility]). Hospitalized as recently as 2017 ([facility]). Maintenance medications consist of a regimen of seroquel 400 mg/hs + haldol 1 mg/day + zolpidem 10 mg/hs. Patient sees a psychiatrist for medication management at the [facility] in [facility]. No reported history of suicide attempts. Physical/Sexual Abuse/Trauma History: Patient denies. Additional Comment: Drug screen is negative. Mental Status Exam - Mental Status Exam Alert and Oriented to: Time, Place, Person Cognitive Function: Good Patient Appearance: Well Groomed (muscular frame, tattoos ) Mood: Apprehensive, Hopeful Affect: Appropriate, Normal Range Patient Behavior: Appropriate, Cooperative Speech Pattern: Clear (fluent in georgian) Voice Loudness: Normal Thought Process: Goal Oriented Thought Disorder: Not Present Hallucinations: Denies Suicidal Ideation: Denies Homicidal Ideation: Denies Insight/Judgement: Fair Sleep: Poorly, Difficulty falling asleep Appetite: Good Muscle strength/Tone: Normal Gait/Station: Normal Psychiatric Findings - Problem List ([place] 1, 2,3) (1) Schizophrenia Current Visit: Yes Status: Chronic Qualifiers: Schizophrenia type: unspecified Qualified Code(s): F20.9 - Schizophrenia, unspecified (2) Alcohol dependence Current Visit: Yes Status: Chronic (3) Insomnia Current Visit: Yes Status: Chronic - Initial Treatment Plan Initial Treatment Plan: Psychoeducation. Support. Reassurance. Motivational counseling. Patient will be informed of the currently FDA-approved strategies for relapse prevention (MAT options). AA meetings. Mr Hahn is requesting an increase of his dose of seroquel. Agrees to an increment of 100 mg. Seroquel is now raised, with the patient's verbal consent, to 300 mg po hs. Side effects/ benefits discussed. Mr Hahn is reminded of his diabetic status but he still insists on staying on that medication (effective in his case). Observation.
[2018-09-13] MEDS: QUEtiapine FUMARATE 300 MG TABLET PO SCH (22:25)
[2018-09-13] MEDS: THIAMINE HCL 100 MG TABLET (FP) PO SCH (22:25)
[2018-09-13] MEDS: MELATONIN 5 MG TABLETS PO PRN (22:28)
[2018-09-13] MEDS: hydrOXYzine PAMOATE 50 MG CAPSULE (FP) PO PRN (22:29)
[2018-09-14] MEDS ORDERED: cloNIDine HCL 0.1 MG TABLET PO ONE (06:32)
[2018-09-14] MEDS ORDERED: INSULIN (NOVOLOG) ASPART 100 UNITS/ML 10ML VIAL ONE ×4 (06:39→16:48)
--- NOTE | 2018-09-14 06:48 | PN ---
S Progress Note Note: Patient's blood pressure is B/P 160/102. Patient is asymptomatic Vital Signs Temperature 97.2 F L 09/14/18 06:32 Pulse Rate 82 09/14/18 06:32 Respiratory Rate 18 09/14/18 06:32 Blood Pressure 160/102 H 09/14/18 06:32 O2 Sat by Pulse Oximetry (%) Action: clonidine 0.1mg tablet oral ordered
[2018-09-14] MEDS: INSULIN SLIDING SCALE (NOVOLOG) 1 VIAL SQ SCH ×3 (07:23→17:24)
[2018-09-14] MEDS: metFORMIN HCL 500 MG TABLET (FP) PO SCH ×2 (07:23→16:49)
[2018-09-14] MEDS ORDERED: predniSONE 10 MG TABLET (UD) PO ONE (10:00)
[2018-09-14] MEDS: hydrOXYzine PAMOATE 50 MG CAPSULE (FP) PO PRN (10:17)
[2018-09-14] MEDS: TRIAMCINOLONE ACET 0.025% CREAM 15 GM TUBE TP SCH ×2 (10:17→21:11)
[2018-09-14] MEDS: PRENATAL VITAMINS W/ FOLIC ACID TABLET (FP) PO SCH (10:17)
[2018-09-14] MEDS: ASPIRIN 81 MG CHEWABLE TABLETS PO SCH (10:17)
[2018-09-14] MEDS: predniSONE 20 MG TABLET (UD) PO SCH (10:17)
[2018-09-14] MEDS ORDERED: PT OWN MED DRAWER 7, Y5N ONE (10:18)
[2018-09-14] MEDS: LISINOPRIL 20 MG TABLET (FP) PO SCH (10:18)
[2018-09-14] MEDS: NIFEdipine E.R. 90 MG TABLET (FP) PO SCH (10:19)
[2018-09-14] MEDS: LABETALOL HCL 100 MG TABLET (FP) PO SCH (10:20)
[2018-09-14] MEDS: FLUTICASONE PROP 0.05% 16 GM NASAL SPRAY NS SCH ×2 (15:44→21:11)
[2018-09-14] MEDS ORDERED: INSULIN (NOVOLOG) ASPART 100 UNITS/ML 10ML VIAL SQ ONE (16:52)
--- NOTE | 2018-09-14 16:55 | PN ---
S Progress Note Note: bgm 520 mgs will give novolog 15 units sq,bgm monitoring with insulin coverage
[2018-09-14] MEDS: MELATONIN 5 MG TABLETS PO PRN (21:10)
[2018-09-14] MEDS: THIAMINE HCL 100 MG TABLET (FP) PO SCH (21:10)
[2018-09-14] MEDS: QUEtiapine FUMARATE 300 MG TABLET PO SCH (21:10)
[2018-09-15] MEDS: metFORMIN HCL 500 MG TABLET (FP) PO SCH ×2 (06:35→16:57)
[2018-09-15] MEDS ORDERED: INSULIN (NOVOLOG) ASPART 100 UNITS/ML 10ML VIAL ONE ×3 (06:36→16:52)
[2018-09-15] MEDS: INSULIN SLIDING SCALE (NOVOLOG) 1 VIAL SQ SCH ×3 (06:38→16:59)
[2018-09-15] MEDS ORDERED: cloNIDine HCL 0.1 MG TABLET PO ONE (07:18)
[2018-09-15] MEDS ORDERED: LABETALOL HCL 100 MG TABLET (FP) PO SCH (09:43)
[2018-09-15] MEDS: PRENATAL VITAMINS W/ FOLIC ACID TABLET (FP) PO SCH (09:59)
[2018-09-15] MEDS: FLUTICASONE PROP 0.05% 16 GM NASAL SPRAY NS SCH ×2 (09:59→21:51)
--- NOTE | 2018-09-15 09:59 | PN ---
[facility] Progress Note Note: PATIENT SEEN FOR ELEVATED BLOOD PRESSURE AND BLOOD SUGAR. PATIENT RECENTLY TREATED WITH COURSE OF PREDNISONE FOR ALLERGIC REACTION WHICH CAN CONTRIBUTE TO ELEVATION OF BLOOD SUGAR. PREDNISONE TITRATION COMPLETED 09/13/18. PATIENT ALSO WITH ELEVATED BP, EXTERNAL HX OF SHOWS LABETOLOL 200MG DAILY NOT 100MG DAILY. PATIENT DENIES HEADACHE, CHEST PAIN, SOB AND DIZZINESS AT THIS TIME. Vital Signs Temperature 97.9 F 09/15/18 06:00 Pulse Rate 109 H 09/15/18 06:00 Respiratory Rate 18 09/15/18 06:00 Blood Pressure 167/116 H 09/15/18 06:00 O2 Sat by Pulse Oximetry (%) Laboratory Tests 09/13/18 09/13/18 09/13/18 06:45 11:49 16:52 POC Glucometer 344 421 418 09/14/18 09/14/18 09/14/18 05:54 12:11 16:45 POC Glucometer 386 376 520 09/15/18 06:35 POC Glucometer 318 PE: ALERT AND ORIENTED X 3 SKIN WARM AND DRY +PERRLA, EOMS INTACT BL EXT FULL ROM, NO TREMORS AMB AD VERONICA A/P: HYPERGLYCEMIA, HX OF DM ELEVATED BP, HX OF HTN WILL INCREASE LABETOLOL TO 100MG BID LISINOPRIL INCREASED TO 40MG DAILY CONTINUE INSULIN AND METFORMIN ENCOURAGE FLUIDS CONTINUE TO MONITOR CLINICALLY
[2018-09-15] MEDS: NIFEdipine E.R. 90 MG TABLET (FP) PO SCH (10:00)
[2018-09-15] MEDS: hydrOXYzine PAMOATE 50 MG CAPSULE (FP) PO PRN ×2 (10:00→21:50)
[2018-09-15] MEDS: ASPIRIN 81 MG CHEWABLE TABLETS PO SCH (10:00)
[2018-09-15] MEDS: TRIAMCINOLONE ACET 0.025% CREAM 15 GM TUBE TP SCH ×2 (10:01→21:51)
[2018-09-15] MEDS: LISINOPRIL 20 MG TABLET (FP) PO SCH (10:21)
[2018-09-15] MEDS: LABETALOL HCL 100 MG TABLET (FP) PO SCH ×2 (10:21→21:50)
[2018-09-15] MEDS: MELATONIN 5 MG TABLETS PO PRN (21:50)
[2018-09-15] MEDS: THIAMINE HCL 100 MG TABLET (FP) PO SCH (21:50)
[2018-09-15] MEDS: QUEtiapine FUMARATE 300 MG TABLET PO SCH (21:50)
[2018-09-16] MEDS ORDERED: HYDROCHLOROTHIAZIDE 25 MG TABLET (FP) PO SCH (06:45)
[2018-09-16] MEDS ORDERED: INSULIN (NOVOLOG) ASPART 100 UNITS/ML 10ML VIAL ONE ×3 (06:48→16:31)
[2018-09-16] MEDS: metFORMIN HCL 500 MG TABLET (FP) PO SCH ×2 (06:51→16:46)
[2018-09-16] MEDS: INSULIN SLIDING SCALE (NOVOLOG) 1 VIAL SQ SCH ×3 (06:57→16:47)
[2018-09-16] MEDS: LABETALOL HCL 100 MG TABLET (FP) PO SCH ×2 (10:27→21:10)
[2018-09-16] MEDS: FLUTICASONE PROP 0.05% 16 GM NASAL SPRAY NS SCH ×2 (10:27→21:13)
[2018-09-16] MEDS: LISINOPRIL 20 MG TABLET (FP) PO SCH (10:27)
[2018-09-16] MEDS: PRENATAL VITAMINS W/ FOLIC ACID TABLET (FP) PO SCH (10:27)
[2018-09-16] MEDS: ASPIRIN 81 MG CHEWABLE TABLETS PO SCH (10:27)
[2018-09-16] MEDS: NIFEdipine E.R. 90 MG TABLET (FP) PO SCH (10:28)
[2018-09-16] MEDS: TRIAMCINOLONE ACET 0.025% CREAM 15 GM TUBE TP SCH ×2 (10:29→21:13)
--- NOTE | 2018-09-16 14:08 | PN ---
[facility] Progress Note Note: Patient with elevated BP and elevated BGM. Asymptomatic. He has many home medications that have not been ordered. His pharmacy was called and the list of medications was sent to [facility]. All appropriate medications and doses were ordered (see orders). Patient informed. Will continue to monitor.
[2018-09-16] MEDS: THIAMINE HCL 100 MG TABLET (FP) PO SCH (21:10)
[2018-09-16] MEDS: QUEtiapine FUMARATE 300 MG TABLET PO SCH (21:11)
[2018-09-16] MEDS: MELATONIN 5 MG TABLETS PO PRN (21:13)
[2018-09-17] MEDS ORDERED: INSULIN (NOVOLOG) ASPART 100 UNITS/ML 10ML VIAL ONE ×3 (06:39→16:43)
[2018-09-17] MEDS: INSULIN SLIDING SCALE (NOVOLOG) 1 VIAL SQ SCH ×3 (06:39→16:43)
[2018-09-17] MEDS: metFORMIN HCL 500 MG TABLET (FP) PO SCH ×2 (06:39→16:45)
[2018-09-17] MEDS: sitaGLIPtin PHOSPHATE 100 MG TABLET (FP) PO SCH (06:39)
[2018-09-17] MEDS ORDERED: PT OWN MED DRAWER 7, Y5N ONE ×2 (09:38→10:18)
[2018-09-17] MEDS ORDERED: LOSARTAN 50MG/HCTZ 12.5MG 1 TAB (FP) PO SCH (10:00)
[2018-09-17] MEDS: ASPIRIN 81 MG CHEWABLE TABLETS PO SCH (10:10)
[2018-09-17] MEDS: LISINOPRIL 20 MG TABLET (FP) PO SCH (10:10)
[2018-09-17] MEDS: PRENATAL VITAMINS W/ FOLIC ACID TABLET (FP) PO SCH (10:10)
[2018-09-17] MEDS: TRIAMCINOLONE ACET 0.025% CREAM 15 GM TUBE TP SCH ×2 (10:11→21:44)
[2018-09-17] MEDS: FLUTICASONE PROP 0.05% 16 GM NASAL SPRAY NS SCH ×2 (10:11→21:44)
[2018-09-17] MEDS: LABETALOL HCL 100 MG TABLET (FP) PO SCH ×2 (10:12→21:04)
[2018-09-17] MEDS: NIFEdipine E.R. 90 MG TABLET (FP) PO SCH (10:13)
--- NOTE | 2018-09-17 11:44 | PN ---
[facility] Progress Note Note: BP and random blood glucose are still elevated; however. home medications were just started today. Will monitor and adjust. Patient is asymptomatic at this time. Vital Signs Period Temp Pulse Resp BP Sys/Walters Pulse Ox Last 24 Hr 97.9 F 83-95 18-18 148-158/94-96 Laboratory Last Values POC Glucometer 300 UNITS (80-120) 09/17/18 06:33
[2018-09-17] MEDS: THIAMINE HCL 100 MG TABLET (FP) PO SCH (21:03)
[2018-09-17] MEDS: QUEtiapine FUMARATE 300 MG TABLET PO SCH (21:03)
[2018-09-17] MEDS: MELATONIN 5 MG TABLETS PO PRN (21:04)
[2018-09-18] MEDS ORDERED: INSULIN (NOVOLOG) ASPART 100 UNITS/ML 10ML VIAL ONE ×3 (06:47→16:45)
[2018-09-18] MEDS: INSULIN SLIDING SCALE (NOVOLOG) 1 VIAL SQ SCH ×3 (06:47→16:56)
[2018-09-18] MEDS: metFORMIN HCL 500 MG TABLET (FP) PO SCH ×2 (06:47→16:49)
[2018-09-18] MEDS: sitaGLIPtin PHOSPHATE 100 MG TABLET (FP) PO SCH (06:47)
[2018-09-18] MEDS ORDERED: cloNIDine HCL 0.1 MG TABLET PO ONE (06:51)
--- NOTE | 2018-09-18 06:56 | PN ---
[facility] Progress Note Note: Patient's blood pressure this morning is B/P 159/107. Patient is asymptomatic Vital Signs Temperature 98.5 F 09/18/18 06:47 Pulse Rate 88 09/18/18 06:47 Respiratory Rate 20 09/18/18 06:47 Blood Pressure 159/107 H 09/18/18 06:47 O2 Sat by Pulse Oximetry (%) Action: Clonidine 0.1mg tablet oral ordered
[2018-09-18] MEDS: NIFEdipine E.R. 90 MG TABLET (FP) PO SCH (09:48)
[2018-09-18] MEDS: ASPIRIN 81 MG CHEWABLE TABLETS PO SCH (09:48)
[2018-09-18] MEDS: LISINOPRIL 20 MG TABLET (FP) PO SCH (09:48)
[2018-09-18] MEDS: PRENATAL VITAMINS W/ FOLIC ACID TABLET (FP) PO SCH (09:48)
[2018-09-18] MEDS: LABETALOL HCL 100 MG TABLET (FP) PO SCH ×2 (09:48→22:00)
[2018-09-18] MEDS: TRIAMCINOLONE ACET 0.025% CREAM 15 GM TUBE TP SCH ×2 (09:49→22:02)
[2018-09-18] MEDS ORDERED: PT OWN MED DRAWER 7, Y5N ONE (09:50)
[2018-09-18] MEDS: FLUTICASONE PROP 0.05% 16 GM NASAL SPRAY NS SCH ×2 (09:51→22:02)
[2018-09-18] MEDS: MELATONIN 5 MG TABLETS PO PRN (22:00)
[2018-09-18] MEDS: THIAMINE HCL 100 MG TABLET (FP) PO SCH (22:00)
[2018-09-18] MEDS: QUEtiapine FUMARATE 300 MG TABLET PO SCH (22:02)
[2018-09-19] MEDS: LOSARTAN 50MG/HCTZ 12.5MG 1 TAB (FP) PO SCH (06:20)
[2018-09-19] MEDS: INSULIN SLIDING SCALE (NOVOLOG) 1 VIAL SQ SCH ×3 (06:47→17:02)
[2018-09-19] MEDS: metFORMIN HCL 500 MG TABLET (FP) PO SCH ×2 (06:47→17:02)
[2018-09-19] MEDS ORDERED: INSULIN (NOVOLOG) ASPART 100 UNITS/ML 10ML VIAL ONE ×4 (06:47→16:31)
[2018-09-19] MEDS: sitaGLIPtin PHOSPHATE 100 MG TABLET (FP) PO SCH (06:47)
[2018-09-19] MEDS: ASPIRIN 81 MG CHEWABLE TABLETS PO SCH (09:54)
[2018-09-19] MEDS: LISINOPRIL 20 MG TABLET (FP) PO SCH (09:54)
[2018-09-19] MEDS: LABETALOL HCL 100 MG TABLET (FP) PO SCH ×2 (09:54→21:42)
[2018-09-19] MEDS: PRENATAL VITAMINS W/ FOLIC ACID TABLET (FP) PO SCH (09:54)
[2018-09-19] MEDS: TRIAMCINOLONE ACET 0.025% CREAM 15 GM TUBE TP SCH ×2 (09:55→21:44)
[2018-09-19] MEDS: FLUTICASONE PROP 0.05% 16 GM NASAL SPRAY NS SCH ×2 (09:55→21:44)
[2018-09-19] MEDS: NIFEdipine E.R. 90 MG TABLET (FP) PO SCH (09:55)
[2018-09-19] MEDS: LORATADINE 10 MG TABLET PO SCH (14:47)
--- NOTE | 2018-09-19 14:52 | PN ---
[facility] Progress Note Note: Patient complains of difficulty to sleep despite taking Belsomra 10 mg and Melatonin 5 mg at bedtime. Benefits vs Risks of Belsomra discussed with patient and he agreed to try it
[2018-09-19] MEDS: MELATONIN 5 MG TABLETS PO PRN (21:42)
[2018-09-19] MEDS: THIAMINE HCL 100 MG TABLET (FP) PO SCH (21:43)
[2018-09-19] MEDS: QUEtiapine FUMARATE 300 MG TABLET PO SCH (21:43)
[2018-09-19] MEDS ORDERED: SUVOREXANT 10 MG TABLET PO PRN (22:00)
[2018-09-20] MEDS: metFORMIN HCL 500 MG TABLET (FP) PO SCH ×2 (06:08→16:53)
[2018-09-20] MEDS: sitaGLIPtin PHOSPHATE 100 MG TABLET (FP) PO SCH (06:08)
[2018-09-20] MEDS ORDERED: INSULIN (NOVOLOG) ASPART 100 UNITS/ML 10ML VIAL ONE ×2 (06:20→11:33)
[2018-09-20] MEDS: LOSARTAN 50MG/HCTZ 12.5MG 1 TAB (FP) PO SCH (06:44)
[2018-09-20] MEDS: INSULIN SLIDING SCALE (NOVOLOG) 1 VIAL SQ SCH ×3 (06:44→16:54)
[2018-09-20] MEDS ORDERED: PT OWN MED DRAWER 7, Y5N ONE (09:21)
[2018-09-20] MEDS: TRIAMCINOLONE ACET 0.025% CREAM 15 GM TUBE TP SCH ×2 (09:35→21:45)
[2018-09-20] MEDS: LABETALOL HCL 100 MG TABLET (FP) PO SCH ×2 (09:35→21:43)
[2018-09-20] MEDS: LORATADINE 10 MG TABLET PO SCH (09:35)
[2018-09-20] MEDS: ASPIRIN 81 MG CHEWABLE TABLETS PO SCH (09:35)
[2018-09-20] MEDS: PRENATAL VITAMINS W/ FOLIC ACID TABLET (FP) PO SCH (09:35)
[2018-09-20] MEDS: NIFEdipine E.R. 90 MG TABLET (FP) PO SCH (09:36)
[2018-09-20] MEDS: LISINOPRIL 20 MG TABLET (FP) PO SCH (09:36)
[2018-09-20] MEDS: FLUTICASONE PROP 0.05% 16 GM NASAL SPRAY NS SCH ×2 (09:37→21:45)
[2018-09-20] MEDS: THIAMINE HCL 100 MG TABLET (FP) PO SCH (21:43)
[2018-09-20] MEDS: QUEtiapine FUMARATE 300 MG TABLET PO SCH (21:44)
[2018-09-21] MEDS ORDERED: INSULIN (NOVOLOG) ASPART 100 UNITS/ML 10ML VIAL ONE ×2 (06:23→11:52)
[2018-09-21] MEDS: sitaGLIPtin PHOSPHATE 100 MG TABLET (FP) PO SCH (06:23)
[2018-09-21] MEDS: LOSARTAN 50MG/HCTZ 12.5MG 1 TAB (FP) PO SCH (06:23)
[2018-09-21] MEDS: metFORMIN HCL 500 MG TABLET (FP) PO SCH ×2 (06:23→16:38)
[2018-09-21] MEDS: INSULIN SLIDING SCALE (NOVOLOG) 1 VIAL SQ SCH ×3 (06:24→16:39)
[2018-09-21] MEDS: LABETALOL HCL 100 MG TABLET (FP) PO SCH ×2 (10:03→21:10)
[2018-09-21] MEDS: ASPIRIN 81 MG CHEWABLE TABLETS PO SCH (10:03)
[2018-09-21] MEDS: PRENATAL VITAMINS W/ FOLIC ACID TABLET (FP) PO SCH (10:03)
[2018-09-21] MEDS: LISINOPRIL 20 MG TABLET (FP) PO SCH (10:03)
[2018-09-21] MEDS: TRIAMCINOLONE ACET 0.025% CREAM 15 GM TUBE TP SCH ×2 (10:04→21:12)
[2018-09-21] MEDS: NIFEdipine E.R. 90 MG TABLET (FP) PO SCH (10:04)
[2018-09-21] MEDS: FLUTICASONE PROP 0.05% 16 GM NASAL SPRAY NS SCH ×2 (10:04→21:12)
[2018-09-21] MEDS: LORATADINE 10 MG TABLET PO SCH (10:04)
[2018-09-21] MEDS: THIAMINE HCL 100 MG TABLET (FP) PO SCH (21:09)
[2018-09-21] MEDS: hydrOXYzine PAMOATE 50 MG CAPSULE (FP) PO PRN (21:10)
[2018-09-21] MEDS: QUEtiapine FUMARATE 300 MG TABLET PO SCH (21:12)
[2018-09-22] MEDS: LOSARTAN 50MG/HCTZ 12.5MG 1 TAB (FP) PO SCH (06:23)
[2018-09-22] MEDS: sitaGLIPtin PHOSPHATE 100 MG TABLET (FP) PO SCH (06:23)
[2018-09-22] MEDS: metFORMIN HCL 500 MG TABLET (FP) PO SCH ×2 (06:24→16:47)
[2018-09-22] MEDS ORDERED: INSULIN (NOVOLOG) ASPART 100 UNITS/ML 10ML VIAL ONE ×3 (06:24→16:34)
[2018-09-22] MEDS: INSULIN SLIDING SCALE (NOVOLOG) 1 VIAL SQ SCH ×3 (06:25→16:48)
[2018-09-22] MEDS ORDERED: PT OWN MED DRAWER 7, Y5N ONE ×2 (09:19→11:34)
[2018-09-22] MEDS: PRENATAL VITAMINS W/ FOLIC ACID TABLET (FP) PO SCH (10:11)
[2018-09-22] MEDS: LABETALOL HCL 100 MG TABLET (FP) PO SCH ×2 (10:11→21:43)
[2018-09-22] MEDS: ASPIRIN 81 MG CHEWABLE TABLETS PO SCH (10:11)
[2018-09-22] MEDS: LORATADINE 10 MG TABLET PO SCH (10:11)
[2018-09-22] MEDS: LISINOPRIL 20 MG TABLET (FP) PO SCH (10:11)
[2018-09-22] MEDS: FLUTICASONE PROP 0.05% 16 GM NASAL SPRAY NS SCH ×2 (10:11→21:52)
[2018-09-22] MEDS: NIFEdipine E.R. 90 MG TABLET (FP) PO SCH (10:11)
[2018-09-22] MEDS: TRIAMCINOLONE ACET 0.025% CREAM 15 GM TUBE TP SCH ×2 (10:11→21:52)
--- NOTE | 2018-09-22 10:27 | PN ---
S Progress Note Note: Vital Signs (72 hours) 09/19/18 09/20/18 09/20/18 21:11 00:30 03:30 Temperature Pulse Rate 90 Respiratory 18 18 18 Rate Blood Pressure 165/101 H 09/20/18 09/20/18 09/20/18 07:08 09:30 11:59 Temperature 98.3 F Pulse Rate 86 88 88 Respiratory 20 18 18 Rate Blood Pressure 163/104 H 159/101 H 153/95 09/21/18 09/21/18 09/21/18 00:30 03:30 07:07 Temperature 97.2 F L Pulse Rate 79 Respiratory 18 18 18 Rate Blood Pressure 167/108 H 09/21/18 09/21/18 09/21/18 08:45 09:30 12:27 Temperature Pulse Rate 86 86 88 Respiratory 18 18 Rate Blood Pressure 140/90 159/101 H 127/84 09/22/18 09/22/18 09/22/18 00:30 03:30 07:09 Temperature 98.3 F Pulse Rate 83 Respiratory 18 20 20 Rate Blood Pressure 157/100 09/22/18 09:30 Temperature Pulse Rate 90 Respiratory 18 Rate Blood Pressure 160/112 H BLOOD PRESSURE REMAINS ELEVATED. EXTERNAL HX SHOWS PRESCRIPTION FOR HYDRALAZINE 100MG TID (08/07/18). WILL ORDER MEDICATION TO MAINTAIN BP CONTROL.
[2018-09-22] MEDS: hydrALAZINE HCL 50 MG TABLET (FP) PO SCH ×2 (14:12→21:42)
[2018-09-22] MEDS: hydrOXYzine PAMOATE 50 MG CAPSULE (FP) PO PRN (21:42)
[2018-09-22] MEDS: QUEtiapine FUMARATE 300 MG TABLET PO SCH (21:43)
[2018-09-22] MEDS: MELATONIN 5 MG TABLETS PO PRN (21:43)
[2018-09-22] MEDS: THIAMINE HCL 100 MG TABLET (FP) PO SCH (21:43)
[2018-09-22] MEDS ORDERED: SUVOREXANT 10 MG TABLET PO PRN (22:00)
[2018-09-23] MEDS: hydrALAZINE HCL 50 MG TABLET (FP) PO SCH ×3 (06:32→21:08)
[2018-09-23] MEDS: LOSARTAN 50MG/HCTZ 12.5MG 1 TAB (FP) PO SCH (06:32)
[2018-09-23] MEDS ORDERED: INSULIN (NOVOLOG) ASPART 100 UNITS/ML 10ML VIAL ONE ×2 (06:38→11:51)
[2018-09-23] MEDS: sitaGLIPtin PHOSPHATE 100 MG TABLET (FP) PO SCH (06:39)
[2018-09-23] MEDS: metFORMIN HCL 500 MG TABLET (FP) PO SCH ×2 (06:39→16:25)
[2018-09-23] MEDS: INSULIN SLIDING SCALE (NOVOLOG) 1 VIAL SQ SCH ×3 (07:06→16:25)
[2018-09-23] MEDS: PRENATAL VITAMINS W/ FOLIC ACID TABLET (FP) PO SCH (10:01)
[2018-09-23] MEDS: TRIAMCINOLONE ACET 0.025% CREAM 15 GM TUBE TP SCH ×2 (10:01→21:46)
[2018-09-23] MEDS: ASPIRIN 81 MG CHEWABLE TABLETS PO SCH (10:01)
[2018-09-23] MEDS: LORATADINE 10 MG TABLET PO SCH (10:01)
[2018-09-23] MEDS: LISINOPRIL 20 MG TABLET (FP) PO SCH (10:01)
[2018-09-23] MEDS: LABETALOL HCL 100 MG TABLET (FP) PO SCH ×2 (10:01→21:09)
[2018-09-23] MEDS: FLUTICASONE PROP 0.05% 16 GM NASAL SPRAY NS SCH ×2 (10:02→21:46)
[2018-09-23] MEDS: NIFEdipine E.R. 90 MG TABLET (FP) PO SCH (10:02)
[2018-09-23] MEDS ORDERED: PT OWN MED DRAWER 7, Y5N ONE ×2 (14:22→19:46)
[2018-09-23] MEDS: QUEtiapine FUMARATE 300 MG TABLET PO SCH (21:08)
[2018-09-23] MEDS: THIAMINE HCL 100 MG TABLET (FP) PO SCH (21:08)
[2018-09-23] MEDS: hydrOXYzine PAMOATE 50 MG CAPSULE (FP) PO PRN (21:09)
[2018-09-23] MEDS: MELATONIN 5 MG TABLETS PO PRN (21:09)
[2018-09-24] MEDS: LOSARTAN 50MG/HCTZ 12.5MG 1 TAB (FP) PO SCH (05:56)
[2018-09-24] MEDS: hydrALAZINE HCL 50 MG TABLET (FP) PO SCH ×3 (05:56→21:51)
[2018-09-24] MEDS: sitaGLIPtin PHOSPHATE 100 MG TABLET (FP) PO SCH (06:22)
[2018-09-24] MEDS: INSULIN SLIDING SCALE (NOVOLOG) 1 VIAL SQ SCH ×3 (06:22→16:44)
[2018-09-24] MEDS: metFORMIN HCL 500 MG TABLET (FP) PO SCH ×2 (06:22→16:43)
[2018-09-24] MEDS ORDERED: PT OWN MED DRAWER 7, Y5N ONE ×3 (09:04→14:45)
[2018-09-24] MEDS: ASPIRIN 81 MG CHEWABLE TABLETS PO SCH (10:11)
[2018-09-24] MEDS: PRENATAL VITAMINS W/ FOLIC ACID TABLET (FP) PO SCH (10:11)
[2018-09-24] MEDS: NIFEdipine E.R. 90 MG TABLET (FP) PO SCH (10:11)
[2018-09-24] MEDS: LABETALOL HCL 100 MG TABLET (FP) PO SCH ×2 (10:12→21:46)
[2018-09-24] MEDS: LORATADINE 10 MG TABLET PO SCH (10:12)
[2018-09-24] MEDS: LISINOPRIL 20 MG TABLET (FP) PO SCH (10:12)
[2018-09-24] MEDS: TRIAMCINOLONE ACET 0.025% CREAM 15 GM TUBE TP SCH ×2 (10:13→21:51)
[2018-09-24] MEDS: FLUTICASONE PROP 0.05% 16 GM NASAL SPRAY NS SCH ×2 (10:14→21:51)
[2018-09-24] MEDS: QUEtiapine FUMARATE 300 MG TABLET PO SCH (21:46)
[2018-09-24] MEDS: MELATONIN 5 MG TABLETS PO PRN (21:46)
[2018-09-24] MEDS: THIAMINE HCL 100 MG TABLET (FP) PO SCH (21:46)
[2018-09-24] MEDS: hydrOXYzine PAMOATE 50 MG CAPSULE (FP) PO PRN (21:47)
[2018-09-25] MEDS: LOSARTAN 50MG/HCTZ 12.5MG 1 TAB (FP) PO SCH (06:05)
[2018-09-25] MEDS: sitaGLIPtin PHOSPHATE 100 MG TABLET (FP) PO SCH (06:05)
[2018-09-25] MEDS: metFORMIN HCL 500 MG TABLET (FP) PO SCH ×2 (06:05→16:34)
[2018-09-25] MEDS: hydrALAZINE HCL 50 MG TABLET (FP) PO SCH ×3 (06:05→21:34)
[2018-09-25] MEDS: INSULIN SLIDING SCALE (NOVOLOG) 1 VIAL SQ SCH ×3 (06:07→16:37)
[2018-09-25] MEDS ORDERED: PT OWN MED DRAWER 7, Y5N ONE ×3 (09:00→13:22)
[2018-09-25] MEDS: ASPIRIN 81 MG CHEWABLE TABLETS PO SCH (09:51)
[2018-09-25] MEDS: NIFEdipine E.R. 90 MG TABLET (FP) PO SCH (09:51)
[2018-09-25] MEDS: LABETALOL HCL 100 MG TABLET (FP) PO SCH ×2 (09:51→21:33)
[2018-09-25] MEDS: LORATADINE 10 MG TABLET PO SCH (09:51)
[2018-09-25] MEDS: PRENATAL VITAMINS W/ FOLIC ACID TABLET (FP) PO SCH (09:51)
[2018-09-25] MEDS: LISINOPRIL 20 MG TABLET (FP) PO SCH (09:51)
[2018-09-25] MEDS: TRIAMCINOLONE ACET 0.025% CREAM 15 GM TUBE TP SCH ×2 (09:52→21:34)
[2018-09-25] MEDS: FLUTICASONE PROP 0.05% 16 GM NASAL SPRAY NS SCH ×2 (10:03→21:34)
[2018-09-25] MEDS: THIAMINE HCL 100 MG TABLET (FP) PO SCH (21:33)
[2018-09-25] MEDS: MELATONIN 5 MG TABLETS PO PRN (21:33)
[2018-09-25] MEDS: hydrOXYzine PAMOATE 50 MG CAPSULE (FP) PO PRN (21:34)
[2018-09-25] MEDS: QUEtiapine FUMARATE 300 MG TABLET PO SCH (21:35)
[2018-09-25] MEDS ORDERED: SUVOREXANT 10 MG TABLET PO PRN (22:00)
[2018-09-26] MEDS: hydrALAZINE HCL 50 MG TABLET (FP) PO SCH ×3 (06:28→21:09)
[2018-09-26] MEDS: sitaGLIPtin PHOSPHATE 100 MG TABLET (FP) PO SCH (06:29)
[2018-09-26] MEDS: LOSARTAN 50MG/HCTZ 12.5MG 1 TAB (FP) PO SCH (06:29)
[2018-09-26] MEDS: metFORMIN HCL 500 MG TABLET (FP) PO SCH ×2 (06:29→16:34)
[2018-09-26] MEDS: INSULIN SLIDING SCALE (NOVOLOG) 1 VIAL SQ SCH ×3 (06:30→16:38)
[2018-09-26] MEDS ORDERED: PT OWN MED DRAWER 7, Y5N ONE ×2 (09:29→09:57)
[2018-09-26] MEDS: PRENATAL VITAMINS W/ FOLIC ACID TABLET (FP) PO SCH (09:55)
[2018-09-26] MEDS: LORATADINE 10 MG TABLET PO SCH (09:58)
[2018-09-26] MEDS: ASPIRIN 81 MG CHEWABLE TABLETS PO SCH (10:03)
[2018-09-26] MEDS: NIFEdipine E.R. 90 MG TABLET (FP) PO SCH (10:04)
[2018-09-26] MEDS: LISINOPRIL 20 MG TABLET (FP) PO SCH (10:04)
[2018-09-26] MEDS: LABETALOL HCL 100 MG TABLET (FP) PO SCH ×2 (10:04→21:08)
[2018-09-26] MEDS: FLUTICASONE PROP 0.05% 16 GM NASAL SPRAY NS SCH ×2 (10:05→21:09)
[2018-09-26] MEDS: TRIAMCINOLONE ACET 0.025% CREAM 15 GM TUBE TP SCH ×2 (10:53→21:09)
[2018-09-26] MEDS: ARTIFICIAL TEARS (POLYVINYL ALCOHOL) OPTH DROPS OU SCH ×2 (10:53→21:09)
[2018-09-26] MEDS ORDERED: INSULIN (NOVOLOG) ASPART 100 UNITS/ML 10ML VIAL ONE ×2 (11:37→16:16)
[2018-09-26] MEDS: QUEtiapine FUMARATE 300 MG TABLET PO SCH (21:08)
[2018-09-26] MEDS: hydrOXYzine PAMOATE 50 MG CAPSULE (FP) PO PRN (21:08)
[2018-09-26] MEDS: THIAMINE HCL 100 MG TABLET (FP) PO SCH (21:08)
[2018-09-26] MEDS: MELATONIN 5 MG TABLETS PO PRN (21:09)
[2018-09-27] MEDS: sitaGLIPtin PHOSPHATE 100 MG TABLET (FP) PO SCH (06:50)
[2018-09-27] MEDS: hydrALAZINE HCL 50 MG TABLET (FP) PO SCH ×3 (06:50→22:02)
[2018-09-27] MEDS: LOSARTAN 50MG/HCTZ 12.5MG 1 TAB (FP) PO SCH (06:51)
[2018-09-27] MEDS: metFORMIN HCL 500 MG TABLET (FP) PO SCH ×2 (06:51→16:49)
[2018-09-27] MEDS ORDERED: INSULIN (NOVOLOG) ASPART 100 UNITS/ML 10ML VIAL ONE ×2 (07:43→11:56)
[2018-09-27] MEDS: INSULIN SLIDING SCALE (NOVOLOG) 1 VIAL SQ SCH ×3 (07:44→17:39)
[2018-09-27] MEDS: FLUTICASONE PROP 0.05% 16 GM NASAL SPRAY NS SCH ×2 (10:09→22:05)
[2018-09-27] MEDS: LORATADINE 10 MG TABLET PO SCH (10:10)
[2018-09-27] MEDS: LISINOPRIL 20 MG TABLET (FP) PO SCH (10:10)
[2018-09-27] MEDS: TRIAMCINOLONE ACET 0.025% CREAM 15 GM TUBE TP SCH ×2 (10:10→22:49)
[2018-09-27] MEDS: PRENATAL VITAMINS W/ FOLIC ACID TABLET (FP) PO SCH (10:10)
[2018-09-27] MEDS: ASPIRIN 81 MG CHEWABLE TABLETS PO SCH (10:10)
[2018-09-27] MEDS: LABETALOL HCL 100 MG TABLET (FP) PO SCH ×2 (10:10→22:02)
[2018-09-27] MEDS: ARTIFICIAL TEARS (POLYVINYL ALCOHOL) OPTH DROPS OU SCH ×2 (10:11→22:49)
[2018-09-27] MEDS: NIFEdipine E.R. 90 MG TABLET (FP) PO SCH (10:11)
[2018-09-27] MEDS ORDERED: PT OWN MED DRAWER 7, Y5N ONE (10:12)
[2018-09-27] MEDS: THIAMINE HCL 100 MG TABLET (FP) PO SCH (22:01)
[2018-09-27] MEDS: MELATONIN 5 MG TABLETS PO PRN (22:01)
[2018-09-27] MEDS: hydrOXYzine PAMOATE 50 MG CAPSULE (FP) PO PRN (22:01)
[2018-09-27] MEDS: QUEtiapine FUMARATE 300 MG TABLET PO SCH (22:04)
[2018-09-28] MEDS: LOSARTAN 50MG/HCTZ 12.5MG 1 TAB (FP) PO SCH (06:06)
[2018-09-28] MEDS: hydrALAZINE HCL 50 MG TABLET (FP) PO SCH ×3 (06:06→21:35)
[2018-09-28] MEDS: sitaGLIPtin PHOSPHATE 100 MG TABLET (FP) PO SCH (06:41)
[2018-09-28] MEDS: metFORMIN HCL 500 MG TABLET (FP) PO SCH ×2 (06:41→16:44)
[2018-09-28] MEDS: INSULIN SLIDING SCALE (NOVOLOG) 1 VIAL SQ SCH ×3 (06:42→16:44)
[2018-09-28] MEDS ORDERED: PT OWN MED DRAWER 7, Y5N ONE (09:06)
[2018-09-28] MEDS: TRIAMCINOLONE ACET 0.025% CREAM 15 GM TUBE TP SCH ×2 (09:46→21:35)
[2018-09-28] MEDS: NIFEdipine E.R. 90 MG TABLET (FP) PO SCH (09:46)
[2018-09-28] MEDS: LISINOPRIL 20 MG TABLET (FP) PO SCH (09:46)
[2018-09-28] MEDS: LABETALOL HCL 100 MG TABLET (FP) PO SCH ×2 (09:46→21:34)
[2018-09-28] MEDS: ASPIRIN 81 MG CHEWABLE TABLETS PO SCH (09:46)
[2018-09-28] MEDS: LORATADINE 10 MG TABLET PO SCH (09:46)
[2018-09-28] MEDS: PRENATAL VITAMINS W/ FOLIC ACID TABLET (FP) PO SCH (09:46)
[2018-09-28] MEDS: ARTIFICIAL TEARS (POLYVINYL ALCOHOL) OPTH DROPS OU SCH ×2 (09:47→21:35)
[2018-09-28] MEDS: FLUTICASONE PROP 0.05% 16 GM NASAL SPRAY NS SCH ×2 (09:48→21:35)
[2018-09-28] MEDS: MELATONIN 5 MG TABLETS PO PRN (21:37)
[2018-09-28] MEDS: QUEtiapine FUMARATE 300 MG TABLET PO SCH (21:38)
[2018-09-28] MEDS: hydrOXYzine PAMOATE 50 MG CAPSULE (FP) PO PRN (21:38)
[2018-09-28] MEDS: THIAMINE HCL 100 MG TABLET (FP) PO SCH (21:38)
[2018-09-29] MEDS: metFORMIN HCL 500 MG TABLET (FP) PO SCH (06:23)
[2018-09-29] MEDS: LOSARTAN 50MG/HCTZ 12.5MG 1 TAB (FP) PO SCH (06:23)
[2018-09-29] MEDS: hydrALAZINE HCL 50 MG TABLET (FP) PO SCH (06:24)
[2018-09-29] MEDS: sitaGLIPtin PHOSPHATE 100 MG TABLET (FP) PO SCH (06:24)
[2018-09-29] MEDS: INSULIN SLIDING SCALE (NOVOLOG) 1 VIAL SQ SCH (06:25)
[2018-09-29 07:25] VITALS: BP 152/97; PULSE 86; TEMP 98.8
--- NOTE | 2018-09-29 08:10 | PN ---
[facility] Progress Note Note: Patient is scheduled for discharge today. Script for 30 days supply of Seroquel 300 mg/hs is electronically transmitted to [facility] at [address] [place] [id number]
[2018-09-29] MEDS ORDERED: PT OWN MED DRAWER 7, Y5N ONE ×2 (08:18→08:19)
[2018-09-29] MEDS: LABETALOL HCL 100 MG TABLET (FP) PO SCH (09:05)
[2018-09-29] MEDS: PRENATAL VITAMINS W/ FOLIC ACID TABLET (FP) PO SCH (09:06)
[2018-09-29] MEDS: ASPIRIN 81 MG CHEWABLE TABLETS PO SCH (09:06)
[2018-09-29] MEDS: NIFEdipine E.R. 90 MG TABLET (FP) PO SCH (09:06)
[2018-09-29] MEDS: FLUTICASONE PROP 0.05% 16 GM NASAL SPRAY NS SCH (09:08)
--- NOTE | 2018-09-29 09:08 | PN ---
[facility] Progress Note Note: REHAB DISCHARGE NOTE: PATIENT D/C FROM REHAB TODAY. AFTERCARE ARRANGED FOR SKILLED NURSING TREATMENT AT [facility] FOR TODAY AT 1PM . PATIENT IS MEDICALLY STABLE, DENIES SI/HI AND STATES HE ACCOMPLISHED ALL GOALS WHILE IN REHAB. PATIENT ENCOURAGED TO COMPLETE SKILLED NURSING TREATMENT TO PREVENT RELAPSE AND TO FOLLOW UP WITH PCP TO CONTINUE MEDICAL MANAGEMENT. D/C INSTRUCTIONS PROVIDED TO PATIENT BY STAFF. Vital Signs Temperature 98.8 F 09/29/18 07:24 Pulse Rate 86 09/29/18 07:24 Respiratory Rate 18 09/29/18 07:24 Blood Pressure 152/97 09/29/18 07:24 O2 Sat by Pulse Oximetry (%) Ambulatory Orders Quetiapine Fumarate [Seroquel -] 400 mg PO HS 09/08/18 Aspirin 81 mg PO DAILY #7 tab.chew 09/29/18 Labetalol HCl 100 mg PO DAILY #7 tablet 09/29/18 Metformin HCl [Glucophage] 500 mg PO BID #14 tablet 09/29/18 Nifedipine [Procardia Xl] 90 mg PO DAILY #7 tab.er.24 09/29/18 Quetiapine Fumarate [Seroquel -] 300 mg PO HS #30 tablet 09/29/18 hydrALAZINE HCL [Apresoline -] 100 mg PO TID #21 tablet 09/29/18 Laboratory Tests 09/13/18 09/13/18 09/13/18 06:45 11:49 16:52 POC Glucometer 344 421 418 09/14/18 09/14/18 09/14/18 05:54 12:11 16:45 POC Glucometer 386 376 520 09/15/18 09/15/18 09/15/18 06:35 12:01 16:57 POC Glucometer 318 322 567 09/16/18 09/16/18 09/16/18 06:36 11:50 16:47 POC Glucometer 310 309 340 09/17/18 09/17/18 09/17/18 06:33 11:53 16:40 POC Glucometer 300 311 165 09/18/18 09/18/18 09/18/18 06:15 11:23 16:49 POC Glucometer 257 289 170 09/19/18 09/19/18 09/19/18 06:18 11:47 17:01 POC Glucometer 237 264 258 09/20/18 09/20/18 09/20/18 06:07 11:30 16:53 POC Glucometer 188 177 211 09/21/18 09/21/18 09/21/18 06:21 11:49 16:39 POC Glucometer 171 240 220 09/22/18 09/22/18 09/22/18 05:45 11:51 16:46 POC Glucometer 212 272 212 09/23/18 09/23/18 09/23/18 06:29 11:49 16:24 POC Glucometer 224 239 168 09/24/18 09/24/18 09/24/18 05:55 11:33 16:42 POC Glucometer 171 150 181 09/25/18 09/25/18 09/25/18 06:04 11:54 16:35 POC Glucometer 154 150 183 09/26/18 09/26/18 09/26/18 06:28 11:30 16:35 POC Glucometer 172 155 157 09/27/18 09/27/18 09/27/18 06:49 11:52 16:48 POC Glucometer 164 157 122 09/28/18 09/28/18 09/28/18 06:06 12:00 16:43 POC Glucometer 139 113 158 09/29/18 06:23 POC Glucometer 179
== END 2018-09-29 09:15 | disposition home or self-care (01) | DRG 772 ==
LOC: YASAS 19:55 → Y3W 19:57
PROVIDERS: ADMIT Neuromusculoskeletal Medicine & OMM; ATTEND Neuromusculoskeletal Medicine & OMM
PROC: HZ42ZZZ Group Counseling for Substance Abuse Treatment, Cognitive-Behavioral (ICD-10-PCS; principal; 2018-09-12)
DX: F10.20 Alcohol dependence, uncomplicated (principal); F20.9 Schizophrenia, unspecified; I10 Essential (primary) hypertension; E11.65 Type 2 diabetes mellitus with hyperglycemia; H91.92 Unspecified hearing loss, left ear; G47.00 Insomnia, unspecified; Z79.84 Long term (current) use of oral hypoglycemic drugs
CPT/HCPCS: 82962; J0735